=== PATIENT | female | born 1935 | race Hispanic/Latino ===

== ENCOUNTER 2018-04-05 11:03 | Emergency (ER) | payer MEDICARE, OTHER ==
[2018-04-05 11:47] LABS: #Eosinphils 0.2 thou/uL (0.0-0.7); #Lymphocytes 1.4 thou/uL (1.20-3.40); #Monocytes 0.3 thou/uL (0.11-0.59); #Neutrophils 3.2 thou/uL (1.40-6.50); %Basophils 0.5 % (0.0-1.0); %Eosinophils 4.6 % (0.0-10.0); %Lymphocytes 27.8 % (21.0-51.0); %Monocytes 5.3 % (0.0-10.0); %Neutrophils 61.7 % (42.0-75.0); Hemoglobin 14.2 g/dL (12.0-16.0); Mean Corpuscular HGB CONC 34.7 g/dL (32.0-36.0); Mean Corpuscular Hemoglobin 30.1 pg (27.0-31.0); Mean Corpuscular Volume 86.8 fl (81.0-99.0); Mean Platelet Volume 7.6 fL (7.4-10.4); Platelet Count 173 thou/uL (130-400); RBC Distribution Width 12.5 % (11.5-14.5); Red Blood Cell (RBC) Count 4.71 mill/uL (4.20-5.40); White Blood Cell (WBC) Count 5.2 thou/uL (4.8-10.8)
[2018-04-05 12:08] LABS: ALT (SGPT) 13 U/L (8-55); AST (SGOT) 14 U/L (5-34); Alkaline Phosphatase 106 U/L (40-150); Anion Gap 9 mmol/L (10-20); BUN (Urea Nitrogen) 14 mg/dL (9.8-20.1); Bilirubin, Total 0.8 mg/dL (0.2-1.2); Calc. Creatinine Clearance 0 mL/min (70-130); Carbon Dioxide 27 mmol/L (23-31); Chloride 105 mmol/L (98-107); Estimated GFR-MDRD 69; Globulin 3.2 g/dL (2.4-3.5); Glucose 152 mg/dL (83-110); Potassium 3.6 mmol/L (3.5-5.1); Protein, Total 7.2 g/dL (6.0-8.3); Sodium 137 mmol/L (136-145)
--- NOTE | 2018-04-05 12:15 | CT ---
CT HEAD NONCONTRAST DATE: 04/05/18 HISTORY: Fall. Head injury. FINDINGS: There is no evidence of acute intracranial hemorrhage or infarct. The ventricles appear normal in siz e, shape, and position. Diffuse cortical atrophy and chronic ischemic small vessel disease are appare nt. There is no mass effect or shift of midline structures. Visualized paranasal sinuses remain well aerated. IMPRESSION: No acute intracranial abnormalities are demonstrated. POS: [facility]
--- NOTE | 2018-04-05 12:16 | RAD ---
RIGHT SHOULDER 3 VIEWS: Date: 04/05/18 HISTORY: Fall, with injury to shoulder. FINDINGS: There is an anterior shoulder dislocation. Small osseous fragment seen adjacent to the humeral head, presumably fracture fragment from the humeral head. Evidence of old, healed right rib fracture. IMPRESSION: Shoulder dislocation with apparent fracture fragment. POS: [facility]
[2018-04-05] MEDS ORDERED: PROPOFOL 20 ML ONE (12:19)
--- NOTE | 2018-04-05 13:56 | RAD ---
RIGHT SHOULDER 2 VIEWS: Date: 04/05/18 HISTORY: Post shoulder dislocation reduction exam. Portable views obtained. FINDINGS/IMPRESSION: Anterior shoulder dislocation has been reduced. Humeral head appears to have a normal position of the glenoid. Rounded calcific density along the lateral humeral head is again noted, probably representi ng chronic extraosseous calcification. No definite fracture identified. AC joint is normally aligned. POS: [facility]
== END 2018-04-05 17:08 ==
LOC: ERS 11:03
DX: S43.004A Unspecified dislocation of right shoulder joint, initial encounter (principal); S10.91XA Abrasion of unspecified part of neck, initial encounter; M19.90 Unspecified osteoarthritis, unspecified site; I10 Essential (primary) hypertension; Z79.82 Long term (current) use of aspirin; Z79.84 Long term (current) use of oral hypoglycemic drugs; Z79.899 Other long term (current) drug therapy; W01.198A Fall on same level from slipping, tripping and stumbling with subsequent striking against other object, initial encounter; Y93.01 Activity, walking, marching and hiking
CPT/HCPCS: 23650; 36415; 70450; 80053; 83880; 85025; 99152; J2704

== ENCOUNTER 2019-04-21 07:16 | Observation (INO) | payer MEDICARE, OTHER ==
[2019-04-21 08:09] LABS: #Eosinphils 0.3 thou/uL (0.0-0.7); #Lymphocytes 1.3 thou/uL (1.20-3.40); #Monocytes 0.4 thou/uL (0.11-0.59); #Neutrophils 2.7 thou/uL (1.40-6.50); %Basophils 0.2 % (0.0-1.0); %Eosinophils 6.1 % (0.0-10.0); %Monocytes 7.6 % (0.0-10.0); %Neutrophils 58.1 % (42.0-75.0); Hemoglobin 14.4 g/dL (12.0-16.0); Mean Corpuscular HGB CONC 34.3 g/dL (32.0-36.0); Mean Corpuscular Hemoglobin 29.3 pg (27.0-31.0); Mean Corpuscular Volume 85.4 fL (78.0-98.0); Mean Platelet Volume 8.6 fL (7.4-10.4); Platelet Count 161 thou/uL (130-400); RBC Distribution Width 13.1 % (11.5-14.5); Red Blood Cell (RBC) Count 4.93 mill/uL (4.20-5.40); White Blood Cell (WBC) Count 4.7 thou/uL (4.8-10.8)
--- NOTE | 2019-04-21 08:15 | RAD ---
Chest one view HISTORY: Dizziness. COMPARISON: 10/20/2014. FINDINGS: Cardiac silhouette is magnified by projection. Pulmonary vasculature upper limits of normal . Mediastinum is midline with aortic calcification. No confluent airspace consolidation or evidence of pneumothorax. night monitor leads overlie the chest. IMPRESSION: Atherosclerosis. No active cardiopulmonary abnormalities are otherwise demonstrated.
[2019-04-21 08:32] LABS: ALT (SGPT) 16 U/L (8-55); AST (SGOT) 23 U/L (5-34); Albumin 3.9 g/dL (3.4-4.8); Alkaline Phosphatase 102 U/L (40-150); Anion Gap 8 mmol/L (10-20); BUN (Urea Nitrogen) 17 mg/dL (9.8-20.1); Bilirubin, Total 0.9 mg/dL (0.2-1.2); Calc. Creatinine Clearance 0 mL/min (70-130); Calcium 10.1 mg/dL (7.8-10.44); Carbon Dioxide 30 mmol/L (23-31); Chloride 104 mmol/L (98-107); Estimated GFR-MDRD 72; Globulin 2.8 g/dL (2.4-3.5); Glucose 91 mg/dL (83-110); Potassium 4.1 mmol/L (3.5-5.1); Protein, Total 6.7 g/dL (6.0-8.3); Sodium 138 mmol/L (136-145)
--- NOTE | 2019-04-21 08:40 | CT ---
CT BRAIN WITHOUT CONTRAST: HISTORY:Headache, dizziness COMPARISON:04/05/2018 FINDINGS: There are foci of decreased attenuation in the periventricular white matter, consistent with chronic small vessel ischemic disease. No evidence of acute infarct, hemorrhage, midline shift or abnormal extra-axial fluid collections is seen. The ventricular size is appropriate and the basilar cisterns are patent. The bony calvarium is intact. The visualized paranasal sinuses and mastoid air cells are well aerated. IMPRESSION: No CT evidence of acute intracranial process.
[2019-04-21] MEDS ORDERED: Aspirin Chewable 81 MG TAB ONE (09:25)
[2019-04-21] MEDS ORDERED: Meclizine HCl 25 MG TAB ONE (09:25)
[2019-04-21 11:48] LABS: Troponin I Less than 0.010 ng/mL (< 0.028)
[2019-04-21 12:22] VITALS: BMI 28.9
[2019-04-21] MEDS ORDERED: HumaLOG 300 UNITS/3 ML VIAL SC PRN (13:18)
[2019-04-21] MEDS ORDERED: Dextrose 50% Abboject 50 ML SYRINGE SLOW IVP PRN (13:18)
[2019-04-21] MEDS ORDERED: Dextrose 5% in Water 1,000 ML IV PRN (13:18)
--- NOTE | 2019-04-21 14:15 | HP ---
CHIEF COMPLAINT: Vertigo. HISTORY OF PRESENT ILLNESS: This patient is an 83-year-old female, who has degenerative joint disease to the point that she is essentially wheelchair bound. The patient reports that she was in her usual state of relatively good health until this morning, she awakened feeling okay, but when she moved her head from [id number], she started feeling very off balance. She denies having true vertigo per se, but felt very much off balance and had some associated nausea with that. She was ultimately able to get herself up into the wheelchair and get to the bathroom, but she has a finished goods stock clerk, who lives with her and she asked her to take her to the emergency room because she was feeling so poorly. She reports that it has waxed and waned since started this morning. She also reports that it is definitely positional and very much worse when she is trying to lie flat. She denies any numbness, weakness, tingling, or changes in her vision. The patient does report that she has been dealing with a lot of visual floaters that have become very problematic for her and she has seen her content manager and had a thorough evaluation with no findings. REVIEW OF SYSTEMS: Again, the patient denies any chest pains or shortness of breath. She does have some osteoarthritis related pains, but no headaches. All other systems reviewed, all pertinent positives noted in history of present illness. PAST MEDICAL HISTORY: Notable for diabetes, degenerative joint disease, ultimately resulting in a patient being wheelchair bound, hyperlipidemia, hypothyroidism, and hypertension. The patient reports her blood pressure is extremely variable and frequently goes up when she is in a healthcare setting. PAST SURGICAL HISTORY: Thyroidectomy, appendectomy, and hysterectomy. FAMILY HISTORY: Father had a cerebral aneurysm. Mother of senescence at 97. She had a brother, who had esophageal cancer and another with congestive heart failure. SOCIAL HISTORY: Nonsmoker, nondrinker, nondrug user. She is for a couple of years now. She is full code and her daughter who is present with her would be her surrogate decision maker. ALLERGIES: CODEINE. CURRENT MEDICATIONS: 1. Metoprolol 100 mg daily. 2. Meloxicam 15 mg daily. 3. Metformin ER 500 mg daily. 4. Levothyroxine 50 mcg daily. 5. Lozol 2.5 daily. 6. Atorvastatin 40 mg nightly. PHYSICAL EXAMINATION: VITAL SIGNS: Temperature 97.5, pulse 54, respirations are 18, O2 saturation 95% on room air, and BP 169/60. GENERAL APPEARANCE: Age-appropriate female, in no distress. Awake, alert, oriented, pleasant, and cooperative. HEENT: PERRL. No OP lesions. NECK: Supple and symmetric. There are no bruits noted. HEART: Regular rate and rhythm without murmurs, gallops, or rubs. LUNGS: Clear to auscultation bilaterally. ABDOMEN: Soft, nontender, and nondistended. Positive bowel sounds. No masses. No organomegaly. EXTREMITIES: Trace edema of the lower extremities, which is nonpitting. NEUROLOGIC: The patient's cranial nerves are fully intact. She has no nystagmus. She has normal strength and sensation throughout otherwise with no focal deficits noted. LABORATORY DATA: White count 4.7, hemoglobin 14.4, and platelets are 161. Chemistries normal. Troponin less than 0.01 x2. Chest x-ray is clear. Head CT is negative for any acute intracranial process. IMPRESSION AND PLAN: 1. Acute onset of vertigo. The patient's symptoms are atypical for a true vertigo and that she does not feel like the room is spinning. Other than that, this sounds somewhat like a positional vertigo with labyrinthitis. The patient will be treated as true TIA versus stroke with carotid Dopplers, echocardiogram, and MRI of the brain and I will treat symptomatically with p.r.n. meclizine. She has received an aspirin in the emergency department and will continue with daily aspirin for now. 2. Diabetes mellitus, typically well controlled on current medications. We will order Accu-Cheks and diabetic diet. 3. Hypertension. The patient's blood pressure was substantially high when she initially presented into the emergency department with a blood pressure of 214/88. She indicated that she tends to have some white coat hypertension and her blood pressure is better now. We will continue to monitor before doing anything more aggressive, especially in light of the potential of an underlying CVA. 4. Hypothyroidism. Continue home medications. 5. Hyperlipidemia. Continue statin. Job ID: [id number]
[2019-04-21 14:42] LABS: Troponin I Less than 0.010 ng/mL (< 0.028)
--- NOTE | 2019-04-21 15:18 | ULT ---
BILATERAL CAROTID DUPLEX ULTRASOUND: HISTORY: TIA/CVA with vertigo TECHNIQUE: Grayscale, color-flow and spectral Doppler ultrasound imaging of the extracranial carotid artery syst ems was performed bilaterally. FINDINGS: There are scattered calcified atherosclerotic plaque seen within the right carotid bulb and proximal right internal carotid artery with atherosclerotic plaque in the region of the left carotid bulb. There is no hemodynamically significant stenosis in the bilateral internal carotid arteries according to the peak systolic velocities and the ICA/CCA ratios. The peak systolic velocity in the right ICA measures 55.7 cm/s. The peak systolic velocity in the left ICA measures 57.7 cm/s. The right IC A/CCA ratio is 1.08 and the left ICA/CCA ratio is 0.88. Vertebral arteries: Antegrade flow is demonstrated in the vertebral arteries bilaterally. IMPRESSION: No hemodynamically significant stenosis involving the bilateral internal carotid arteries.
[2019-04-21] MEDS: metFORMIN 500 MG TAB PO SCH (16:24)
[2019-04-21] MEDS ORDERED: Atorvastatin Calcium 40 MG TAB PO SCH (21:00)
[2019-04-22 05:36] LABS: Cardiac Risk 3.7 (Less than 4.5)
[2019-04-22] MEDS ORDERED: Levothyroxine Sodium 50 MCG TAB PO SCH (06:00)
[2019-04-22] MEDS: metFORMIN 500 MG TAB PO SCH ×2 (07:58→19:40)
--- NOTE | 2019-04-22 08:52 | MRI ---
EXAM: Brain MRI Without contrast: HISTORY: TIA, CVA, vertigo, headache and dizziness COMPARISON: None FINDINGS: Multiplanar multisequence MRI examination of the brain is performed. Extensive motion artifact consid erably lowers the sensitivity of this study. Minimal generalized ventriculomegaly. Bilateral atrophy and chronic white matter ischemic changes. No mass or midline shift. No evidence for intra or extra-axial hemorrhage. No evidence for abnormal restricted diffusion. No evidence for acute infarct. Normal-appearing flow voids are noted. The extracranial soft tissues and calvarial marrow signal appear within normal limits. Visualized sinuses and mastoids are unremarkable. IMPRESSION: No significant acute intracranial process. Atrophy and chronic white matter ischemic change. No mass or bleed. No acute infarct.
[2019-04-22] MEDS ORDERED: Aspirin 81 mg Enteric Coated Tablet PO SCH (09:00)
[2019-04-22] MEDS ORDERED: Indapamide 1.25 MG TAB PO SCH (09:00)
[2019-04-22] MEDS ORDERED: Meloxicam 15 MG TAB PO SCH (09:00)
[2019-04-22] MEDS ORDERED: Metoprolol Tartrate 100 MG TAB PO SCH (09:00)
[2019-04-22 16:05] VITALS: BP 172/72; TEMP 97.7
--- NOTE | 2019-04-23 03:54 | DIS ---
DATE OF ADMISSION: 04/21/2019 DATE OF DISCHARGE: 04/22/2019 CHIEF COMPLAINT: Dizziness. DISCHARGE DIAGNOSES: 1. Dizziness, consistent with benign paroxysmal positional vertigo, cerebrovascular accident workup negative, symptoms resolved with meclizine. 2. Severe osteoarthritis, wheelchair bound/nonambulatory. 3. Hypertension. 4. Hyperlipidemia. 5. Type 2 diabetes mellitus. 6. Abnormal EKG, new T-wave inversions noted in the anterior leads, asymptomatic. BRIEF HOSPITAL COURSE: The patient is a very pleasant 83-year-old female with past medical history significant for hypertension, hyperlipidemia, and type 2 diabetes mellitus, who presented with complaints of dizziness. She was in her usual state of health until the day of her admission, when she awoke, feeling okay, but then when she moved her head from [id number], she began feeling very off-balance. She felt dizzy with associated nausea. The symptoms were exacerbated with lying flat. She was admitted to our facility for further workup and treatment. CT of the brain was negative for any acute intracranial abnormality. Her MRI was negative for acute stroke. Her symptoms did resolve overnight with scheduled meclizine. An incidental finding was new T-wave inversions noted on anterior leads of her EKG when compared to previous EKGs in 2010 and 2013. The patient denies any chest pain or shortness of breath. She has no palpitations or any other cardiac symptoms at this time. CONDITION ON DISCHARGE: Stable. DISCHARGE DISPOSITION: Home. DISCHARGE MEDICATIONS: 1. Aspirin 81 mg daily. 2. Metoprolol 100 mg daily. 3. Metformin 500 mg tablet daily. 4. Meloxicam 50 mg tablet daily. 5. Levothyroxine 50 mcg tablet daily. 6. Atorvastatin 40 mg tablet daily. 7. Lozol 2.5 mg p.o. daily. New medication will be meclizine p.r.n. DISCHARGE INSTRUCTIONS: The patient is to continue her aspirin and statin. Findings of all of her testing, including her echocardiogram which showed normal left ventricular systolic function and wall motion, were explained to the patient. I have advised her to follow up with her primary care physician, Dr. Mcneal for consideration of stress test or cardiac referral as an outpatient. This was discussed with the patient and her family, which they understand and agree. She will follow up with her PCP and return to the hospital with any returning of symptoms. The care of this patient has been discussed in detail with Dr. Singh who agrees with discharge as outlined above. Job ID: [id number]
== END 2019-04-22 19:35 | disposition home or self-care (01) ==
LOC: ERS 07:16 → 2SE 11:15 → 2NO 13:42 → 2SE 13:46
PROVIDERS: ADMIT Internal Medicine; ATTEND Internal Medicine
DX: R42 Dizziness and giddiness (principal); M19.90 Unspecified osteoarthritis, unspecified site; E11.9 Type 2 diabetes mellitus without complications; E78.5 Hyperlipidemia, unspecified; E89.0 Postprocedural hypothyroidism; I10 Essential (primary) hypertension; Z88.5 Allergy status to narcotic agent; Z79.84 Long term (current) use of oral hypoglycemic drugs; Z79.899 Other long term (current) drug therapy
CPT/HCPCS: 70450; 70551; 71045; 80053; 80061; 82962 ×2; 84484 ×2; 85025; 93005; 93306; 93880; 99285; G0378 ×2; 36415; 36416; J8499

== ENCOUNTER 2019-10-15 09:26 | Inpatient (IN) | payer MEDICARE, OTHER ==
[2019-10-15] MEDS ORDERED: Lidocaine Viscous Sol 2% 15 ml UD Cup ONE (09:59)
[2019-10-15] MEDS ORDERED: Ondansetron PF 4 MG/2 ML Vial ONE (10:00)
[2019-10-15] MEDS ORDERED: Mag-Al 1200 mg/1200 mg/30 ML UDCUP ONE (10:00)
[2019-10-15 10:26] LABS: #Monocytes 0.7 thou/uL (0.11-0.59); #Neutrophils 8.8 thou/uL (1.40-6.50); %Basophils 0.2 % (0.0-1.0); %Eosinophils 0.2 % (0.0-10.0); %Lymphocytes 9.1 % (21.0-51.0); %Monocytes 6.7 % (0.0-10.0); %Neutrophils 83.7 % (42.0-75.0); Hemoglobin 14.2 g/dL (12.0-16.0); Mean Corpuscular HGB CONC 33.3 g/dL (32.0-36.0); Mean Corpuscular Hemoglobin 28.7 pg (27.0-31.0); Mean Corpuscular Volume 86.2 fL (78.0-98.0); Mean Platelet Volume 8.3 fL (7.4-10.4); Platelet Count 150 thou/uL (130-400); RBC Distribution Width 12.7 % (11.5-14.5); Red Blood Cell (RBC) Count 4.95 mill/uL (4.20-5.40); White Blood Cell (WBC) Count 10.5 thou/uL (4.8-10.8)
[2019-10-15 10:52] LABS: ALT (SGPT) 15 U/L (8-55); AST (SGOT) 17 U/L (5-34); Albumin 3.8 g/dL (3.4-4.8); Alkaline Phosphatase 86 U/L (40-110); Anion Gap 12 mmol/L (10-20); BUN (Urea Nitrogen) 17 mg/dL (9.8-20.1); Bilirubin, Total 1.6 mg/dL (0.2-1.2); Calc. Creatinine Clearance 0 mL/min (70-130); Calcium 10.1 mg/dL (7.8-10.44); Carbon Dioxide 25 mmol/L (23-31); Chloride 97 mmol/L (98-107); Estimated GFR-MDRD 72; Globulin 3.4 g/dL (2.4-3.5); Glucose 132 mg/dL (83-110); Lipase 21 U/L (8-78); Protein, Total 7.2 g/dL (6.0-8.3); Sodium 130 mmol/L (136-145)
--- NOTE | 2019-10-15 10:58 | ULT ---
Venous duplex sonogram bilateral lower extremity HISTORY: Bilateral leg pain and edema. FINDINGS: Each common femoral vein and greater saphenous junction were evaluated along with each femo ral, deep femoral, popliteal, and posterior tibial vein. There is good color and spectral Doppler flow, compression, and augmentation. IMPRESSION: Normal exam.
--- NOTE | 2019-10-15 11:19 | CT ---
CT OF THE ABDOMEN AND PELVIS WITH IV CONTRAST INDICATION: Nausea and abdominal pain COMPARISON: October 21, 2014 FINDINGS: ABDOMEN: Lung bases: Clear Liver: No focal lesion. No biliary ductal dilatation demonstrated. Gallbladder: There is marked gallbladder wall thickening with pericholecystic inflammatory stranding Pancreas: Normal. Adrenal glands: Normal. Spleen: Normal. Kidneys and ureters: Normal. No hydronephrosis. Vasculature: There are severe vascular calcifications seen involving the visualized vasculature. Lymph nodes:No lymphadenopathy. Free fluid in abdomen:No free fluid is evident. PELVIS: Small and large bowel: Normal Appendix:Not visualized Bladder: Normal. Rectal and perirectal soft tissues:Normal. Reproductive structures: Surgically absent Free fluid in pelvis: No free fluid is evident. Lymphadenopathy pelvis: No lymphadenopathy is evident. Osseous structures: No acute osseous abnormality. No destructive osteolytic or osteoblastic lesion i s identified. There is scattered degenerative and osteoarthritic changes. There is moderate thoracolumbar scoliosis there is a remote superior endplate compression abnormality of L4. Soft tissues:Normal. IMPRESSION: 1. Acute cholecystitis. No intrahepatic or extra hepatic biliary ductal dilatation demonstrated.
--- NOTE | 2019-10-15 11:23 | RAD ---
SINGLE VIEW CHEST: Date: 10/15/19 COMPARISON: 04/21/19. HISTORY: Nausea and epigastric abdominal pain. FINDINGS: Single view of the chest shows a normal sized cardiomediastinal silhouette. There is no evidence of c onsolidation, mass, or pleural effusion. The bones are unremarkable. IMPRESSION: No evidence of acute cardiopulmonary disease. POS: [facility]
[2019-10-15] MEDS ORDERED: Piperacillin/Tazobactam 4.5 GM VIAL ONE (11:34)
[2019-10-15] MEDS ORDERED: Sodium Chloride 0.9% 100 ML ONE (11:36)
[2019-10-15 11:51] LABS: Bilirubin Negative (Negative); Blood, Urine Negative (Negative); Clarity Clear (Clear); Glucose, Urine (Dipstick) Normal (Negative); Leukocyte 500 Leu/uL (Negative); Nitrite 1+ (Negative); Protein, Urine (Dipstick) Negative (Neg-Trace); RBC/HPF 0-3 HPF (0-3); Squamous Epithelial 0-3 HPF (0-3); Urobilinogen Normal mg/dL (Less than 2); WBC/HPF Greater than 50 HPF (0-3)
--- NOTE | 2019-10-15 11:57 | ULT ---
Gallbladder ultrasound: Multiple grayscale images of right upper quadrant obtained according to protocol. INDICATION: Pain FINDINGS: Liver: Normal Gallbladder: Cholelithiasis. Gallbladder wall: Borderline thickening, 3 mm. Trace pericholecystic edema. Stubbs's Sign: Negative Common bile duct is normal. Ascites: None IMPRESSION: Cholelithiasis. Borderline size gallbladder wall with trace pericholecystic fluid. Correlate clinical ly to exclude evidence of cholecystitis.
[2019-10-15 12:03] LABS: Bacteria/HPF 4+ HPF (None Seen)
--- NOTE | 2019-10-15 16:03 | HP ---
HISTORY OF PRESENT ILLNESS: Kelli Lea is an 84-year-old female, comes to the emergency room with right upper quadrant pain, epigastric pain, back radiation, nausea, ongoing for several days. She has had past events of epigastric mild discomfort and nausea and pressure type symptoms in epigastric. She, in the emergency room, underwent a CAT scan of the abdomen and pelvis and ultrasound of the gallbladder, revealing normal bile duct caliber and findings of acute cholecystitis and cholelithiasis. Her white count was 10 and hemoglobin 14. Bilirubin 1.6, AST and ALT 17 and 15, alkaline phosphatase normal. Lipase normal. Sodium 130, potassium 4.0, BUN 17, and creatinine 0.76. She was noted to have some nonspecific ST changes and troponins are negative. The patient has never had a cardiac history. On 04/22/2019 at [facility], had an echocardiogram that was normal, 50% to 55% ejection fraction, moderate LVH, moderate mitral regurgitation, mild tricuspid regurgitation, normal pulmonary artery pressure. The patient has never had a past cardiac workup or seeing a dobby looms pegger. ALLERGIES: NONE. SHE REPORTS GI SIDE EFFECTS FROM CODEINE. SOCIAL HISTORY: Tobacco and alcohol none. HOME MEDICATIONS: She takes, 1. Metformin 500 a day. 2. Metoprolol 100 mg a day. 3. Mobic 15 mg a day. 4. Levothyroxine 50 mcg a day. 5. Lozol 2.5 mg a day. 6. Atorvastatin 40 mg a day. 7. Aspirin 81 mg a day. PAST SURGICAL HISTORY: She has had a hysterectomy, salpingo-oophorectomy, appendectomy, and thyroidectomy. PAST MEDICAL HISTORY: Diabetes mellitus, hypertension. The patient has arthritis. She is mobile about her home in a wheelchair and walker. She is able to transfer on her own. She is independent. She has recently stopped driving. Mobility is limited by her degenerative joint disease. She is followed by Dr. Mcneal. FAMILY HISTORY: Brother had esophageal cancer. Another sibling had congestive heart failure. Mother , dementia. PHYSICAL EXAMINATION: VITAL SIGNS: respiratory rate 18, temperature 97.9 degrees, blood pressure 140/67, and 95. HEAD, EYES, NOSE, AND THROAT: Unremarkable. LUNGS: Clear to auscultation. CARDIAC: Regular rate and rhythm without murmur or gallop. ABDOMEN: Soft. Tenderness in right upper quadrant positive Stubbs sign. EXTREMITIES: Unremarkable. ASSESSMENT AND PLAN: Cholecystitis, cholelithiasis. Recommend laparoscopic video cholecystectomy. Risks of infection, bleeding, visceral and biliary injury discussed. She consents. We will review her EKG as her troponins are normal and may echocardiogram essentially normal. I think she is safe to proceed. We will review her EKG with Cardiology and hopefully, we can accomplish this today. Job ID: [id number]
[2019-10-15] MEDS ORDERED: Iopamidol-370 76% 500 ML 1 ML ONE (16:15)
[2019-10-15] MEDS ORDERED: Dextrose 50% Abboject 50 ML SYRINGE SLOW IVP PRN (16:22)
[2019-10-15] MEDS ORDERED: Dextrose 5% in Water 1,000 ML IV PRN (16:22)
[2019-10-15] MEDS ORDERED: Ondansetron PF 4 MG/2 ML Vial IVP PRN (16:22)
[2019-10-15] MEDS ORDERED: Morphine 2 MG/ML SYRINGE SLOW IVP PRN (16:22)
[2019-10-15] MEDS ORDERED: HumaLOG 300 UNITS/3 ML VIAL SC PRN (16:22)
[2019-10-15] MEDS ORDERED: Ondansetron ODT 4 MG TAB PO PRN (16:22)
[2019-10-15] MEDS ORDERED: Acetaminophen 500 MG TAB PO PRN (16:31)
[2019-10-15] MEDS ORDERED: Acetaminophen 1,000 MG in Premix Bag 1 BAG IVPB PRN (16:31)
[2019-10-15] MEDS ORDERED: Ketorolac Tromethamine 30 MG/ML VIAL IVP SCH (16:45)
[2019-10-15] MEDS ORDERED: Acetaminophen 1,000 MG in Premix Bag 1 BAG IVPB SCH (16:45)
[2019-10-15] MEDS ORDERED: Ketorolac Tromethamine 30 MG/ML VIAL IVP PRN (21:00)
[2019-10-15] MEDS: Sodium Chloride 0.9% 1,000 ML IV SCH (22:05)
[2019-10-15] MEDS: Enoxaparin Sodium 40 MG/0.4 ML SYRINGE SC SCH (22:09)
[2019-10-15 23:17] VITALS: BMI 27.1
[2019-10-16 05:55] LABS: Hemoglobin A1c 5.5 % (4.0-6.0)
[2019-10-16 06:09] LABS: ALT (SGPT) 13 U/L (8-55); AST (SGOT) 12 U/L (5-34); Albumin 3.1 g/dL (3.4-4.8); Alkaline Phosphatase 68 U/L (40-110); Anion Gap 7 mmol/L (10-20); BUN (Urea Nitrogen) 15 mg/dL (9.8-20.1); Bilirubin, Total 1.2 mg/dL (0.2-1.2); Calc. Creatinine Clearance 59 mL/min (70-130); Calcium 9.3 mg/dL (7.8-10.44); Carbon Dioxide 28 mmol/L (23-31); Chloride 102 mmol/L (98-107); Estimated GFR-MDRD 71; Glucose 112 mg/dL (83-110); Potassium 3.4 mmol/L (3.5-5.1); Protein, Total 6.1 g/dL (6.0-8.3); Sodium 134 mmol/L (136-145)
[2019-10-16] MEDS: Sodium Chloride 0.9% 1,000 ML IV SCH ×2 (06:46→20:45)
[2019-10-16] MEDS: Levothyroxine Sodium 50 MCG TAB PO SCH (06:47)
[2019-10-16] MEDS: Metoprolol Tartrate 100 MG TAB PO SCH (08:21)
[2019-10-16] MEDS ORDERED: Glycopyrrolate 0.2 MG/ML 5 ML SYRINGE ONE (10:08)
[2019-10-16] MEDS ORDERED: Rocuronium Bromide 10 MG/ML (10ML VIAL) ONE (10:08)
[2019-10-16] MEDS ORDERED: PROPOFOL 200 MG/20 ML VIAL ONE (10:08)
[2019-10-16] MEDS ORDERED: Lidocaine 1% PF 5 ML VIAL ONE (10:08)
[2019-10-16] MEDS ORDERED: Ondansetron PF 4 MG/2 ML Vial ONE (10:08)
[2019-10-16] MEDS ORDERED: PHENYLEPHRINE-NS 100 MCG/ML 10 ML SYRINGE ONE (10:08)
[2019-10-16] MEDS ORDERED: ePHEDrine/0.9% NaCl/PF SYRINGE 50 mg/10 ml ONE (10:08)
[2019-10-16] MEDS ORDERED: Ketorolac Tromethamine 30 MG/ML VIAL ONE (13:27)
[2019-10-16] MEDS ORDERED: Fentanyl 100 MCG/2 ML VIAL ONE (14:39)
[2019-10-16] MEDS ORDERED: Bupivacaine HCl 0.5%/Epinephrine 1:200,000/PF 30 ml Vial ONE (14:49)
[2019-10-16] MEDS ORDERED: Promethazine HCl 25 MG/ML VIAL SLOW IVP PRN (15:54)
[2019-10-16] MEDS ORDERED: Ondansetron HCl/PF 4 MG/2 ML Vial IVP PRN (15:54)
[2019-10-16] MEDS ORDERED: Promethazine HCl 25 MG/ML VIAL IM PRN (15:54)
[2019-10-16] MEDS ORDERED: traMADol HCl 50 MG TAB PO PRN (16:09)
[2019-10-16] MEDS ORDERED: Acetaminophen 500 MG TAB PO PRN (16:09)
[2019-10-16] MEDS ORDERED: Ibuprofen 600 MG TAB PO PRN (16:09)
--- NOTE | 2019-10-16 16:49 | OP ---
DATE OF PROCEDURE: 10/16/2019 PREOPERATIVE DIAGNOSES: Acute cholecystitis and cholelithiasis. POSTOPERATIVE DIAGNOSES: Acute on chronic cholecystitis, cholelithiasis, hydrops of the gallbladder, and large stone blocking the outlet. ANESTHESIA: General, local 0.5% Marcaine with epinephrine. DESCRIPTION OF PROCEDURE: The patient was taken to the operating room. Under general anesthesia, abdomen was prepared with ChloraPrep and draped in routine fashion, local anesthetic 0.5% Marcaine with epinephrine was infiltrated in the skin and subcutaneous tissue about all port sites. An infraumbilical incision made, pneumoperitoneum established with a Veress needle to 15 mmHg and a 5 mm port applied. Videolaparoscope inserted. Remaining ports placed under laparoscopic visualization. A right subxiphoid incision was made and 11 port placed, right subcostal incision was made at midclavicular entrance line, the 5 port was placed. Fundus of the gallbladder was difficult to grasp due to its thickened inflamed nature and distended gallbladder, but nonetheless it was grasped and reflected cephalad and then grasped with this laterally after omental adhesions taken down from its inflammatory attachments. Critical view obtained. Dissecting the cystic artery and duct free, doubly clipped and the cystic artery and duct divided and the gallbladder dissected free from inflammatory attachments to the gallbladder from the liver bed using cautery for hemostasis. Gallbladder and contents, large stone removed. Good hemostasis ensured with cautery. Irrigant and pneumoperitoneum were evacuated. Right subxiphoid fascia was approximated with 0 Vicryl suture. All skin incisions were approximated with interrupted subdermal 4-0 Monocryl and [place] glue applied. Job ID: [id number]
[2019-10-16] MEDS: Aspirin 81 mg Enteric Coated Tablet PO SCH (17:48)
[2019-10-16] MEDS: Enoxaparin Sodium 40 MG/0.4 ML SYRINGE SC SCH (20:44)
[2019-10-17] MEDS: Sodium Chloride 0.9% 1,000 ML IV SCH ×2 (00:27→08:38)
[2019-10-17 04:09] LABS: #Lymphocytes 0.5 thou/uL (1.20-3.40); #Monocytes 0.3 thou/uL (0.11-0.59); #Neutrophils 4.8 thou/uL (1.40-6.50); %Basophils 0.2 % (0.0-1.0); %Eosinophils 0.1 % (0.0-10.0); %Lymphocytes 8.8 % (21.0-51.0); %Monocytes 5.1 % (0.0-10.0); %Neutrophils 85.8 % (42.0-75.0); Hemoglobin 11.4 g/dL (12.0-16.0); Mean Corpuscular HGB CONC 34.1 g/dL (32.0-36.0); Mean Corpuscular Hemoglobin 29.2 pg (27.0-31.0); Mean Corpuscular Volume 85.7 fL (78.0-98.0); Mean Platelet Volume 8.4 fL (7.4-10.4); Platelet Count 119 thou/uL (130-400); RBC Distribution Width 12.5 % (11.5-14.5); Red Blood Cell (RBC) Count 3.92 mill/uL (4.20-5.40); White Blood Cell (WBC) Count 5.6 thou/uL (4.8-10.8)
[2019-10-17 04:31] LABS: ALT (SGPT) 33 U/L (8-55); AST (SGOT) 41 U/L (5-34); Albumin 2.9 g/dL (3.4-4.8); Alkaline Phosphatase 66 U/L (40-110); Anion Gap 9 mmol/L (10-20); BUN (Urea Nitrogen) 13 mg/dL (9.8-20.1); Bilirubin, Total 0.8 mg/dL (0.2-1.2); Calc. Creatinine Clearance 70 mL/min (70-130); Calcium 8.8 mg/dL (7.8-10.44); Carbon Dioxide 26 mmol/L (23-31); Chloride 105 mmol/L (98-107); Estimated GFR-MDRD 86; Globulin 2.8 g/dL (2.4-3.5); Glucose 84 mg/dL (83-110); Protein, Total 5.7 g/dL (6.0-8.3); Sodium 137 mmol/L (136-145)
[2019-10-17 04:34] LABS: Potassium 2.9 mmol/L (3.5-5.1)
[2019-10-17] MEDS ORDERED: Potassium Chloride 20 MEQ TAB PO SCH (05:00)
[2019-10-17] MEDS: Levothyroxine Sodium 50 MCG TAB PO SCH (05:10)
[2019-10-17 08:42] VITALS: BP 149/77
[2019-10-17] MEDS: Aspirin 81 mg Enteric Coated Tablet PO SCH (10:00)
[2019-10-17] MEDS: Metoprolol Tartrate 100 MG TAB PO SCH (10:00)
[2019-10-17 13:33] VITALS: TEMP 98.5
--- NOTE | 2019-10-17 16:36 | DIS ---
DATE OF ADMISSION: 10/15/2019 DATE OF DISCHARGE: 10/17/2019 DISCHARGE DIAGNOSES: Severe cholecystitis acute on chronic with cholelithiasis. PROCEDURES THIS HOSPITALIZATION: CT scan of the abdomen and pelvis and ultrasound revealing findings of acute cholecystitis and cholelithiasis. CAT scan of the abdomen and pelvis obtained, unremarkable except for cholecystitis changes. No biliary ductal dilatation. Liver function tests were normal. HISTORY: An 84-year-old female, developing acute abdominal pain. I evaluated in the emergency room with the above findings. She has questionable EKG changes with Dr. Garcia and Dr. Barnes reviewed and there were no changes from baseline. Several months ago, echocardiogram in March was unremarkable. The patient had right upper quadrant epigastric pain, back radiation. The patient was treated with intravenous antibiotics, taken to the operating room for laparoscopic cholecystectomy on 10/16 due to unavailability of OR on 10/15 at 3 p.m. when she arrived. The patient is discharged home with oral antibiotics, Tylenol, and Motrin for pain, and resume her home medications of metformin, Toprol, meloxicam, levothyroxine, Lozol, atorvastatin, and aspirin. Diet and activity as tolerated. She can transfer, but mobility is limited by her DJD. Job ID: [id number]
--- NOTE | 2019-10-18 07:26 | HP ---
ADDENDUM: Ms. Lea was seen earlier. History and physical dictated. I reviewed her May EKG. The patient had some equivocal EKG changes. I have obtained her March EKG. Noted a normal echocardiogram with minimal valvular changes in March. The patient is asymptomatic from a cardiac standpoint. Her troponins are negative. Her symptoms are clearly biliary, and she is not having any chest pain. I have reviewed her May EKG with current EKG. On her March EKG, she had a right bundle-branch block. It was not recorded by the computer. This was read and reviewed with Dr. Josue Barnes. The patient's EKG changes are not acute and are old, and further workup is not warranted. We will admit her to the Surgical Service and plan laparoscopic cholecystectomy tomorrow as the operating room theater is not available at 0430 this afternoon. Job ID: [id number]
== END 2019-10-17 16:44 | disposition home or self-care (01) | DRG 418 ==
LOC: ERS 09:26 → SURG B 18:55
PROVIDERS: ADMIT Specialist; ATTEND Specialist
PROC: 0FT44ZZ Resection of Gallbladder, Percutaneous Endoscopic Approach (ICD-10-PCS; principal; 2019-10-16)
DX: K80.12 Calculus of gallbladder with acute and chronic cholecystitis without obstruction (principal); K82.1 Hydrops of gallbladder; I08.3 Combined rheumatic disorders of mitral, aortic and tricuspid valves; I10 Essential (primary) hypertension; E11.9 Type 2 diabetes mellitus without complications; E03.9 Hypothyroidism, unspecified; Z88.5 Allergy status to narcotic agent; Z79.84 Long term (current) use of oral hypoglycemic drugs; Z79.82 Long term (current) use of aspirin; Z79.890 Hormone replacement therapy; Z79.899 Other long term (current) drug therapy; Z90.710 Acquired absence of both cervix and uterus; Z90.49 Acquired absence of other specified parts of digestive tract
CPT/HCPCS: 36415; 36416; 71045; 74177; 76705; 80053; 81003; 81015; 83036; 83605; 83690; 83880; 84484; 85025; 88304; 93005; 93970; 96361; 96365; 96366; 96367; 96375; J0131; J0670; J1650; J1885; J1956; J2001; J2405; J2543; J2704; J3010; J3490; Q9967

== ENCOUNTER 2020-10-06 08:38 | Inpatient (IN) | payer MEDICARE, OTHER ==
[2020-10-06] MEDS ORDERED: Acetaminophen 500 MG TAB ONE (09:31)
[2020-10-06] MEDS ORDERED: cefTRIAXone\\ROCEPHIN 2 GM VIAL ONE (09:31)
[2020-10-06 09:41] LABS: #Eosinphils 0.3 thou/uL (0.0-0.7); #Lymphocytes 1.2 thou/uL (1.20-3.40); #Monocytes 0.4 thou/uL (0.11-0.59); #Neutrophils 3.1 thou/uL (1.40-6.50); %Basophils 0.9 % (0.0-1.0); %Eosinophils 6.3 % (0.0-10.0); %Lymphocytes 23.6 % (21.0-51.0); %Monocytes 7.8 % (0.0-10.0); %Neutrophils 61.4 % (42.0-75.0); Hemoglobin 14.2 g/dL (12.0-16.0); Mean Corpuscular HGB CONC 34.5 g/dL (32.0-36.0); Mean Corpuscular Hemoglobin 30.1 pg (27.0-31.0); Mean Corpuscular Volume 87.2 fL (78.0-98.0); Mean Platelet Volume 8.7 fL (7.4-10.4); Platelet Count 161 thou/uL (130-400); RBC Distribution Width 12.6 % (11.5-14.5); Red Blood Cell (RBC) Count 4.72 mill/uL (4.20-5.40); White Blood Cell (WBC) Count 5.1 thou/uL (4.8-10.8)
[2020-10-06 09:54] LABS: ALT (SGPT) 17 U/L (8-55); AST (SGOT) 18 U/L (5-34); Alkaline Phosphatase 93 U/L (40-110); Anion Gap 9 mmol/L (10-20); BUN (Urea Nitrogen) 19 mg/dL (9.8-20.1); Bilirubin, Total 0.9 mg/dL (0.2-1.2); Calc. Creatinine Clearance 0 mL/min (70-130); Carbon Dioxide 29 mmol/L (23-31); Chloride 100 mmol/L (98-107); Estimated GFR-MDRD 44; Globulin 3.1 g/dL (2.4-3.5); Glucose 90 mg/dL (83-110); Potassium 4.3 mmol/L (3.5-5.1); Protein, Total 7.1 g/dL (6.0-8.3); Sodium 134 mmol/L (136-145)
[2020-10-06] MEDS ORDERED: Vancomycin HCl 1.25 GM in Sodium Chloride 0.9% 250 ML 250 ML IVPB SCH (10:00)
[2020-10-06] MEDS ORDERED: Acetaminophen 650 MG Suppository PR PRN (11:09)
--- NOTE | 2020-10-06 11:22 | PDOC.HHP ---
Hospitalist HPI - History of Present Illness History of Present Illness: ADMISSION DATE: 10/06/2020 TIME OF ASSESSMENT: 1000 PRIMARY CARE PHYSICIAN: Dr. Kenton Mcneal CHIEF COMPLAINT: Left lower leg swelling and redness HPI: Ms. Lou is a pleasant 85-year-old woman who presents to the emergency department due to worsening swelling and redness in the left lower leg. She states she first noted erythema and swelling extending approximately 4 to 5 cm above her ankle on Friday last . Reports a blister on the lower half of her espinoza which had burst and was draining clear fluid. She made an appointment to see her primary care physician this past Friday and was started on Bactrim. at that time there had been no worsening redness or swelling. She began her antibiotics on Friday morning and today the redness began to extend up her lower leg. It remains below the knee and she denies any significant pain but states that she has a lot of itching. Denies having any fevers chills or sweats. No nausea or vomiting. No headaches or dizziness. Uses a wheelchair to get around at baseline. At times she is able to use a counter to walk in her kitchen. Denies any urinary symptoms. No stool changes. All other review systems are negative. ED COURSE: In the emergency department the patient had laboratory studies done which showed a white count of 5.1, hemoglobin 14.2, hematocrit 41.2, platelets 161, neutrophils 61.4% sodium 134 potassium 4.3 BUN 19 creatinine 1.16 GFR 44 glucose 90 lactic acid 1.1. CRP negative. BNP 199.7. LFTs unremarkable. Left tib-fib x-ray done, report pending. Patient was given 1 L of normal saline and 1 g of Tylenol. She was started on IV antibiotics with vancomycin and Rocephin. PAST MEDICAL HISTORY: 1. Hypertension 2. Hypothyroidism 3. Prediabetes PAST SURGICAL HISTORY: 1. Thyroidectomy 2. Appendectomy 3. Cholecystectomy 4. Hysterectomy SOCIAL HISTORY: Patient lives at home with her family. As mentioned she mainly mobilizes with the help of a wheelchair but is able to stand and walk and short distances at home. He is fully independent. Denies any tobacco use alcohol consumption or drug use. FAMILY HISTORY: Contributory ALLERGIES: Codeine CURRENT MEDICATIONS: 1. Levothyroxine 50 mcg p.o. daily 2. Atorvastatin 40 mg p.o. daily 3. Indapamide 2.5 mg p.o. daily 4. Meloxicam 15 mg p.o. daily 5. Aspirin 81 mg p.o. daily 6. Metoprolol tartrate 100 mg p.o. daily 7. Furosemide 20 mg p.o. daily 8. Bactrim 9. Mupirocin 2% topical 3 times daily - Exam General Appearance: NAD, awake alert General - other findings: VS: temp 97.7, HR 79, BP 175/71, RR 16, O2 sat 97% on room air. Eye: PERRL, anicteric sclera ENT: normocephalic atraumatic, no oropharyngeal lesions, moist mucosa Neck: supple, symmetric, no lymphadenopathy Heart: RRR, no murmur, no gallops, no rubs, normal peripheral pulses Respiratory: CTAB, no wheezes, no rales, no ronchi, normal chest expansion Gastrointestinal: soft, non-tender, non-distended, normal bowel sounds Extremities: 1+ LE edema Extremities - other findings: LLE: erythema/swelling, lower half of lower leg Skin - other findings: LLE: small blisters, one open blister with no active drainage/bleeding Neurological: cranial nerve grossly intact, normal sensation to touch Musculoskeletal: normal tone, normal strength, no muscle wasting Psychiatric: normal affect, normal behavior, A&O x 3 Hospitalist Results - Labs Result Diagrams: 10/06/20 07:26 10/06/20 07:26 Lab results: WBC 5.1 thou/uL (4.8-10.8) 10/06/20 07:26 Hgb 14.2 g/dL (12.0-16.0) 10/06/20 07:26 Hct 41.2 % (36.0-47.0) 10/06/20 07:26 MCV 87.2 fL (78.0-98.0) 10/06/20 07:26 Plt Count 161 thou/uL (130-400) 10/06/20 07:26 Neutrophils % 61.4 % (42.0-75.0) 10/06/20 07:26 ESR Westergren 11 mm/hr (Less than 30) 10/06/20 10:16 Sodium 134 mmol/L (136-145) L 10/06/20 07:26 Potassium 4.3 mmol/L (3.5-5.1) 10/06/20 07:26 Chloride 100 mmol/L (98-107) 10/06/20 07:26 Carbon Dioxide 29 mmol/L (23-31) 10/06/20 07:26 BUN 19 mg/dL (9.8-20.1) 10/06/20 07:26 Creatinine 1.16 mg/dL (0.6-1.1) H 10/06/20 07:26 Glucose 90 mg/dL (83-110) 10/06/20 07:26 Lactic Acid 1.1 mmol/L (0.5-2.2) 10/06/20 10:16 Calcium 10.0 mg/dL (7.8-10.44) 10/06/20 07:26 Total Bilirubin 0.9 mg/dL (0.2-1.2) 10/06/20 07:26 AST 18 U/L (5-34) 10/06/20 07:26 ALT 17 U/L (8-55) 10/06/20 07:26 Alkaline Phosphatase 93 U/L (40-110) 10/06/20 07:26 C-Reactive Protein Less than 0.50 mg/dL (= or < 0.5) 10/06/20 10:16 B-Natriuretic Peptide 199.7 pg/mL (0-100) H 10/06/20 10:16 Serum Total Protein 7.1 g/dL (6.0-8.3) 10/06/20 07:26 Albumin 4.0 g/dL (3.4-4.8) 10/06/20 07:26 Hospitalist H&P A/P - Problem (1) Left leg cellulitis Code(s): L03.116 - CELLULITIS OF LEFT LOWER LIMB Status: Acute Assessment and Plan: Continue IV antibiotics Pharmacy to dose Vanc Given Rocephin in ED Will give Cefepime 2 gm IV BID starting tomorrow AM. Monitor for further worsening of erythema/swelling. Daily BMP to assess renal funcion. Daily CBC. (2) PINKY (acute kidney injury) Code(s): N17.9 - ACUTE KIDNEY FAILURE, UNSPECIFIED Status: Acute Assessment and Plan: Hx of lower extremity Edema, on Lasix at home. Last Echo 03/2019: EF 50-55%, LVH, mod MR, mild TR. Gentle hydration. Monitor renal function (3) Hypertension Code(s): I10 - ESSENTIAL (PRIMARY) HYPERTENSION Status: Chronic Assessment and Plan: Monitor BP Resume home medications once verified. (4) Hypothyroidism Code(s): E03.9 - HYPOTHYROIDISM, UNSPECIFIED Status: Chronic Assessment and Plan: Resume levothyroxine once dose verified. Check TSH. (5) Pre-diabetes Code(s): R73.03 - PREDIABETES Status: Chronic Assessment and Plan: glucose monitoring, ACHS (6) Arthritis Code(s): M19.90 - UNSPECIFIED OSTEOARTHRITIS, UNSPECIFIED SITE Status: Chronic Assessment and Plan: Resume home meds once verified. - Plan Plan: GI prophylaxis with Famotidine. DVT Prophylaxis with Enoxaparin Surrogate decision maker is her daughter Arianne Pino FULL CODE STATUS
--- NOTE | 2020-10-06 11:37 | RAD ---
LEFT TIBIA AND FIBULA 2 VIEWS: Date: 10/06/2020 HISTORY: Cellulitis of calf that has been getting worse. FINDINGS: There are moderate arthritic changes of the knee. There is spur formation at the Achilles tendon inse rtion. Vascular calcifications are seen. No underlying bony findings that would suggest osteomyelitis . No air within the soft tissues. IMPRESSION: No acute bony findings. No evidence for osteomyelitis. POS: BLESSING
[2020-10-06] MEDS ORDERED: Enoxaparin Sodium 30 MG/0.3 ML SYRINGE SC SCH (11:45)
[2020-10-06 14:35] VITALS: BMI 29.2
[2020-10-06] MEDS: Sodium Chloride 0.9% 1,000 ML IV SCH (15:04)
[2020-10-06 17:52] LABS: SARS-CoV-2 MS2 Positive; SARS-CoV-2 N Gene Negative; SARS-CoV-2 S Gene Negative; SARS-CoV-2 by NAA Not Detected (NotDetected); SARS-CoV-2 orf1ab Negative
--- NOTE | 2020-10-06 17:59 | ULT ---
EXAM: Left lower extremity venous Doppler US HISTORY: left lower extremity edema and pain FINDINGS: Grayscale, color-flow, Doppler evaluation, spectral analysis of the left lower extremity venous struc tures is performed with 2-D imaging. The left common femoral, superficial femoral, popliteal, posterior tibial, proximal greater saphenous and profunda femoral veins are imaged. There is normal luminal compressibility, flow, and augmentation the visualized deep venous structures of the left lower extremity. IMPRESSION: No evidence of a deep vein thrombosis in the left lower extremity.
[2020-10-06] MEDS: Cefepime 2 GM in Sodium Chloride 0.9% 100 ML IVPB SCH (21:43)
[2020-10-07] MEDS: Acetaminophen 325 MG TAB PO PRN ×4 (01:32→19:27)
[2020-10-07 05:07] LABS: #Eosinphils 0.3 thou/uL (0.0-0.7); #Lymphocytes 1.2 thou/uL (1.20-3.40); #Monocytes 0.4 thou/uL (0.11-0.59); #Neutrophils 2.5 thou/uL (1.40-6.50); %Basophils 0.4 % (0.0-1.0); %Eosinophils 6.2 % (0.0-10.0); %Lymphocytes 27.1 % (21.0-51.0); %Monocytes 9.4 % (0.0-10.0); Hemoglobin 12.7 g/dL (12.0-16.0); Mean Corpuscular HGB CONC 34.1 g/dL (32.0-36.0); Mean Corpuscular Hemoglobin 30.6 pg (27.0-31.0); Mean Corpuscular Volume 89.8 fL (78.0-98.0); Mean Platelet Volume 8.2 fL (7.4-10.4); Platelet Count 129 thou/uL (130-400); RBC Distribution Width 12.6 % (11.5-14.5); Red Blood Cell (RBC) Count 4.14 mill/uL (4.20-5.40); White Blood Cell (WBC) Count 4.5 thou/uL (4.8-10.8)
[2020-10-07 05:29] LABS: Anion Gap 10 mmol/L (10-20); BUN (Urea Nitrogen) 18 mg/dL (9.8-20.1); Calc. Creatinine Clearance 47 mL/min (70-130); Calcium 9.1 mg/dL (7.8-10.44); Carbon Dioxide 25 mmol/L (23-31); Chloride 108 mmol/L (98-107); Estimated GFR-MDRD 55; Glucose 88 mg/dL (83-110); Sodium 139 mmol/L (136-145)
[2020-10-07] MEDS ORDERED: FLU VACC QS2020-21(65YR UP)/PF 240 MCG/0.7 ML SYRINGE IM ONE (09:00)
[2020-10-07] MEDS: Enoxaparin Sodium 30 MG/0.3 ML SYRINGE SC SCH (09:21)
[2020-10-07] MEDS: Famotidine 20 MG TAB PO SCH (09:21)
--- NOTE | 2020-10-07 09:21 | PDOC.HOSPP ---
- Subjective Encounter Date: 10/07/20 Encounter Time: 08:30 Subjective: Patient seen today. Complains her hands ache, which she states is chronic but worse than normal. She was planning to go see her PCP on Friday to talk abou increased discomfort. She reports she may not have taken her home medication for this yesterday so once reconciled we will get her back on her meds to see if this helps. Denies overnight issues. Denies leg pain, states she thinks the cellulitis is improving. - Objective Vital Signs & Weight: Vital Signs (12 hours) Temp Pulse Resp BP Pulse Ox 10/07/20 07:00 97.4 F L 88 18 158/72 H 100 10/07/20 03:36 97.9 F 71 19 146/84 H 100 10/06/20 23:18 97.6 F 67 19 147/66 H 99 Weight Weight 72.575 kg Result Diagrams: 10/07/20 04:47 10/07/20 04:47 Additional Labs: Accuchecks 10/07/20 10/06/20 10/06/20 05:18 23:23 16:15 POC Glucose 78 102 H 130 H Hospitalist ROS - Review of Systems Constitutional: denies: fever, chills, sweats, weakness, malaise, other Eyes: denies: pain, vision change, conjunctivae inflammation, eyelid inflammation, redness, other ENT: denies: ear pain, ear discharge, nose pain, nose discharge, nose congestion, mouth pain, mouth swelling, throat pain, throat swelling, other Respiratory: denies: cough, dry, shortness of breath, hemoptysis, SOB with excertion, pleuritic pain, sputum, wheezing, other Cardiovascular: denies: chest pain, palpitations, orthopnea, paroxysmal noc. dyspnea, edema, light headedness, other Gastrointestinal: denies: nausea, vomiting, abdominal pain, diarrhea, constipation, melena, hematochezia, other Musculoskeletal: reports: hand pain Skin: denies: rash, lesions, annalee, bruising, other Neurological: denies: weakness, numbness, incoordination, change in speech, confusion, seizures, other - Medication Medications: Active Medications Generic Name Dose Route Start Last Admin Trade Name Freq PRN Reason Stop Dose Admin Acetaminophen 650 mg 10/06/20 11:09 10/07/20 06:32 Acetaminophen 325 Mg Tab PO 650 mg Q4H PRN Administration Headache/Fever/Mild Pain (1-3) Cefepime HCl 2 gm/ Sodium 100 mls @ 200 mls/hr 10/06/20 21:00 10/06/20 21:43 Chloride IVPB 100 mls Q12HR MATT Administration Sodium Chloride 1,000 mls @ 45 mls/hr 10/06/20 11:45 10/06/20 15:04 Normal Saline 0.9% IV 1,000 mls .[id number] MATT Administration - Exam General Appearance: awake alert Eye: PERRL, anicteric sclera ENT: normocephalic atraumatic, moist mucosa Neck: supple, no JVD Heart: RRR, no murmur Respiratory: CTAB, normal chest expansion Gastrointestinal: soft, non-tender Extremities - other findings: Left lower leg with erythema and edema; erythema has not exceeded marker Skin - other findings: See extremities Neurological: cranial nerve grossly intact Hosp A/P (1) PINKY (acute kidney injury) Code(s): N17.9 - ACUTE KIDNEY FAILURE, UNSPECIFIED Status: Resolved (2) Left leg cellulitis Code(s): L03.116 - CELLULITIS OF LEFT LOWER LIMB Status: Acute (3) Arthritis Code(s): M19.90 - UNSPECIFIED OSTEOARTHRITIS, UNSPECIFIED SITE Status: Chronic (4) Hypertension Code(s): I10 - ESSENTIAL (PRIMARY) HYPERTENSION Status: Chronic (5) Hypothyroidism Code(s): E03.9 - HYPOTHYROIDISM, UNSPECIFIED Status: Chronic (6) Pre-diabetes Code(s): R73.03 - PREDIABETES Status: Chronic - Plan continue antibiotics, PT/OT, GI proph Problem (1) Left leg cellulitis Code(s): L03.116 - CELLULITIS OF LEFT LOWER LIMB Status: Acute Assessment and Plan: Continue IV antibiotics Pharmacy to dose Vanc Will be on Cefepime and Vanc Monitor for further worsening of erythema/swelling. Daily BMP to assess renal funcion. Daily CBC. Blood cultures - no growth to date (2) PINKY (acute kidney injury) Code(s): N17.9 - ACUTE KIDNEY FAILURE, UNSPECIFIED Status: Acute Assessment and Plan: Hx of lower extremity Edema, on Lasix at home. Last Echo 03/2019: EF 50-55%, LVH, mod MR, mild TR. Gentle hydration. Will likely DC fluids in AM Monitor renal function Creatinine has improved; PINKY has resolved (3) Hypertension Code(s): I10 - ESSENTIAL (PRIMARY) HYPERTENSION Status: Chronic Assessment and Plan: Monitor BP Resume home medications once verified. (4) Hypothyroidism Code(s): E03.9 - HYPOTHYROIDISM, UNSPECIFIED Status: Chronic Assessment and Plan: Resume levothyroxine once dose verified. Check TSH in AM (5) Pre-diabetes Code(s): R73.03 - PREDIABETES Status: Chronic Assessment and Plan: glucose monitoring, ACHS (6) Arthritis Code(s): M19.90 - UNSPECIFIED OSTEOARTHRITIS, UNSPECIFIED SITE Status: Chronic Assessment and Plan: Resume home meds once verified. - Plan Plan: GI prophylaxis with Famotidine. DVT Prophylaxis with Enoxaparin Surrogate decision maker is her daughter Arianne Pino FULL CODE STATUS
[2020-10-07] MEDS: Metoprolol Tartrate 100 MG TAB PO SCH (09:22)
[2020-10-07] MEDS: Cefepime 2 GM in Sodium Chloride 0.9% 100 ML IVPB SCH ×2 (09:24→21:09)
[2020-10-07] MEDS ORDERED: Vancomycin 1 GM in Premix Bag 1 BAG IVPB SCH (11:00)
[2020-10-07] MEDS: Sodium Chloride 0.9% 1,000 ML IV SCH (15:46)
[2020-10-07] MEDS: Atorvastatin Calcium 40 MG TAB PO SCH (21:09)
[2020-10-07] MEDS: Ketotifen Fumarate 0.025% Ophth Soln 5 ml Bottle EA EYE SCH (21:10)
[2020-10-08 05:28] LABS: #Eosinphils 0.3 thou/uL (0.0-0.7); #Lymphocytes 1.2 thou/uL (1.20-3.40); #Monocytes 0.3 thou/uL (0.11-0.59); #Neutrophils 2.7 thou/uL (1.40-6.50); %Basophils 0.3 % (0.0-1.0); %Eosinophils 7.3 % (0.0-10.0); %Lymphocytes 25.9 % (21.0-51.0); %Monocytes 6.8 % (0.0-10.0); %Neutrophils 59.6 % (42.0-75.0); Mean Corpuscular HGB CONC 34.7 g/dL (32.0-36.0); Mean Corpuscular Hemoglobin 30.9 pg (27.0-31.0); Mean Corpuscular Volume 89.1 fL (78.0-98.0); Mean Platelet Volume 8.2 fL (7.4-10.4); Platelet Count 131 thou/uL (130-400); RBC Distribution Width 12.4 % (11.5-14.5); Red Blood Cell (RBC) Count 4.22 mill/uL (4.20-5.40); White Blood Cell (WBC) Count 4.6 thou/uL (4.8-10.8)
[2020-10-08 05:44] LABS: Anion Gap 9 mmol/L (10-20); BUN (Urea Nitrogen) 14 mg/dL (9.8-20.1); Calc. Creatinine Clearance 53 mL/min (70-130); Calcium 9.3 mg/dL (7.8-10.44); Carbon Dioxide 27 mmol/L (23-31); Chloride 107 mmol/L (98-107); Estimated GFR-MDRD 62; Glucose 90 mg/dL (83-110); Potassium 4.1 mmol/L (3.5-5.1); Sodium 139 mmol/L (136-145)
[2020-10-08] MEDS: Levothyroxine Sodium 50 MCG TAB PO SCH (05:56)
[2020-10-08] MEDS: Acetaminophen 325 MG TAB PO PRN ×3 (05:56→21:08)
[2020-10-08] MEDS: Enoxaparin Sodium 30 MG/0.3 ML SYRINGE SC SCH (08:37)
[2020-10-08] MEDS: Aspirin 81 mg Enteric Coated Tablet PO SCH (08:38)
[2020-10-08] MEDS: Furosemide 20 MG TAB PO SCH (08:38)
[2020-10-08] MEDS: Meloxicam 15 MG TAB PO SCH (08:38)
[2020-10-08] MEDS: Famotidine 20 MG TAB PO SCH (08:38)
[2020-10-08] MEDS: Cefepime 2 GM in Sodium Chloride 0.9% 100 ML IVPB SCH ×2 (08:40→21:12)
[2020-10-08] MEDS: Ketotifen Fumarate 0.025% Ophth Soln 5 ml Bottle EA EYE SCH ×2 (08:40→21:12)
[2020-10-08] MEDS: Metoprolol Tartrate 100 MG TAB PO SCH (08:41)
[2020-10-08 10:21] LABS: Vancomycin, Trough 9.5 ug/mL
--- NOTE | 2020-10-08 10:46 | PDOC.HOSPP ---
- Subjective Encounter Date: 10/08/20 Encounter Time: 09:15 Subjective: Patient reports pain in her left leg is improving. Was able to get some sleep overnight. Denies any new complaints. - Objective Vital Signs & Weight: Vital Signs (12 hours) Temp Pulse Resp BP Pulse Ox 10/08/20 08:38 96 10/08/20 07:50 98 F 78 18 170/89 H 96 10/08/20 04:23 97.8 F 70 16 146/63 H 95 10/08/20 00:00 97.4 F L 68 16 161/74 H 95 Weight Admit Weight 72.575 kg Weight 72.575 kg I&O: 10/07/20 10/08/20 10/09/20 06:59 06:59 06:59 Intake Total 480 Output Total 2452 Balance -1972 Result Diagrams: 10/08/20 04:59 10/08/20 04:59 Additional Labs: Accuchecks 10/07/20 10/07/20 21:35 10:45 POC Glucose 113 H 91 Hospitalist ROS - Review of Systems Constitutional: denies: fever, chills, sweats, weakness, malaise, other Eyes: denies: pain, vision change, conjunctivae inflammation, eyelid inflammation, redness, other ENT: denies: ear pain, ear discharge, nose pain, nose discharge, nose con gestion, mouth pain, mouth swelling, throat pain, throat swelling, other Respiratory: denies: cough, dry, shortness of breath, hemoptysis, SOB with excertion, pleuritic pain, sputum, wheezing, other Cardiovascular: denies: chest pain, palpitations, orthopnea, paroxysmal noc. dyspnea, edema, light headedness, other Gastrointestinal: denies: nausea, vomiting, abdominal pain, diarrhea, constipation, melena, hematochezia, other Genitourinary: denies: dysuria, frequency, incontinence, hematuria, retention, other Musculoskeletal: reports: hand pain (We restarted home meds yesterday and pain in bilateral hands has improved) Skin: reports: other (Erythema, warmth and edema is improving to left leg) - Medication Medications: Active Medications Generic Name Dose Route Start Last Admin Trade Name Freq PRN Reason Stop Dose Admin Acetaminophen 650 mg 10/06/20 11:09 10/08/20 05:56 Acetaminophen 325 Mg Tab PO 650 mg Q4H PRN Administration Headache/Fever/Mild Pain (1-3) Aspirin 81 mg 10/08/20 09:00 10/08/20 08:38 Aspirin 81 Mg Enteric Coated Tablet PO 81 mg DAILY MATT Administration Atorvastatin Calcium 40 mg 10/07/20 21:00 10/07/20 21:09 Atorvastatin Calcium 40 Mg Tab PO 40 mg HS MATT Administration Enoxaparin Sodium 30 mg 10/07/20 09:00 10/08/20 08:37 Enoxaparin Sodium 30 Mg/0.3 Ml Syringe SC 30 mg 0900 MATT Administration Famotidine 20 mg 10/07/20 09:00 10/08/20 08:38 Famotidine 20 Mg Tab PO 20 mg DAILY MATT Administration Furosemide 20 mg 10/08/20 09:00 10/08/20 08:38 Furosemide 20 Mg Tab PO 20 mg DAILY MATT Administration Cefepime HCl 2 gm/ Sodium 100 mls @ 200 mls/hr 10/06/20 21:00 10/08/20 08:40 Chloride IVPB 100 mls Q12HR MATT Administration Sodium Chloride 1,000 mls @ 45 mls/hr 10/06/20 11:45 10/07/20 15:46 Normal Saline 0.9% IV Not Given .[id number] MATT Indapamide 2.5 mg 10/08/20 09:00 10/08/20 08:41 Indapamide 2.5 Mg Tab PO 2.5 mg DAILY MATT Administration Ketotifen Fumarate 1 drop 10/07/20 21:00 10/08/20 08:40 Ketotifen Fumarate 0.025% Ophth Soln 5 Ml Bottle EA EYE 1 drp BID MATT Administration Levothyroxine Sodium 50 mcg 10/08/20 06:00 10/08/20 05:56 Levothyroxine Sodium 50 Mcg Tab PO 50 mcg 0600 MATT Administration Meloxicam 15 mg 10/08/20 09:00 10/08/20 08:38 Meloxicam 15 Mg Tab PO 15 mg DAILY MATT Administration Metoprolol Tartrate 100 mg 10/07/20 09:00 10/08/20 08:41 Metoprolol Tartrate 100 Mg Tab PO 100 mg DAILY MATT Administration - Exam Eye: PERRL, anicteric sclera ENT: normocephalic atraumatic, moist mucosa Neck: supple, no JVD Heart: RRR Gastrointestinal: soft, non-tender Extremities - other findings: Left lower leg with mild erythema, warmth and edema. Much improved today Skin: normal turgor Skin - other findings: Has small ulceration to dorsal lower left leg, improving Hosp A/P (1) PINKY (acute kidney injury) Code(s): N17.9 - ACUTE KIDNEY FAILURE, UNSPECIFIED Status: Resolved (2) Left leg cellulitis Code(s): L03.116 - CELLULITIS OF LEFT LOWER LIMB Status: Acute (3) Arthritis Code(s): M19.90 - UNSPECIFIED OSTEOARTHRITIS, UNSPECIFIED SITE Status: Chronic (4) Hypertension Code(s): I10 - ESSENTIAL (PRIMARY) HYPERTENSION Status: Chronic (5) Hypothyroidism Code(s): E03.9 - HYPOTHYROIDISM, UNSPECIFIED Status: Chronic (6) Pre-diabetes Code(s): R73.03 - PREDIABETES Status: Chronic - Plan Problem (1) Left leg cellulitis Code(s): L03.116 - CELLULITIS OF LEFT LOWER LIMB Status: Acute Assessment and Plan: Continue IV antibiotics Pharmacy to dose Vanc Will be on Cefepime and Vanc Monitor for further worsening of erythema/swelling. Are of erythema and warmth has receeded from previous outline Daily BMP to assess renal function. Blood cultures - no growth to date Discussed DC in AM if cellulitis continues to improve. Patient's daughter reports she and caregiver at night can assist with dressing changes once home. (2) PINKY (acute kidney injury) Code(s): N17.9 - ACUTE KIDNEY FAILURE, UNSPECIFIED Status: Acute Assessment and Plan: Hx of lower extremity Edema, on Lasix at home. Last Echo 03/2019: EF 50-55%, LVH, mod MR, mild TR. Monitor renal function Creatinine has improved; PINKY has resolved (3) Hypertension Code(s): I10 - ESSENTIAL (PRIMARY) HYPERTENSION Status: Chronic Assessment and Plan: Monitor BP Resume home medications once verified. (4) Hypothyroidism Code(s): E03.9 - HYPOTHYROIDISM, UNSPECIFIED Status: Chronic Assessment and Plan: Resume levothyroxine once dose verified. (5) Pre-diabetes Code(s): R73.03 - PREDIABETES Status: Chronic Assessment and Plan: glucose monitoring, ACHS (6) Arthritis Code(s): M19.90 - UNSPECIFIED OSTEOARTHRITIS, UNSPECIFIED SITE Status: Chronic Assessment and Plan: Resume home meds once verified. - Plan Plan: GI prophylaxis with Famotidine. DVT Prophylaxis with Enoxaparin Surrogate decision maker is her daughter Arianne Pino FULL CODE STATUS
[2020-10-08] MEDS: Sodium Chloride 0.9% 1,000 ML IV SCH (10:48)
[2020-10-08] MEDS ORDERED: Vancomycin HCl 1.25 GM in Sodium Chloride 0.9% 250 ML 250 ML IVPB SCH (11:00)
[2020-10-08] MEDS: Vancomycin HCl 750 MG in Sodium Chloride 0.9% 250 ML 250 ML IVPB SCH ×2 (11:20→22:40)
[2020-10-08] MEDS: Atorvastatin Calcium 40 MG TAB PO SCH (21:08)
[2020-10-09] MEDS: Levothyroxine Sodium 50 MCG TAB PO SCH (05:11)
[2020-10-09] MEDS: Cefepime 2 GM in Sodium Chloride 0.9% 100 ML IVPB SCH (08:47)
[2020-10-09] MEDS: Ketotifen Fumarate 0.025% Ophth Soln 5 ml Bottle EA EYE SCH (08:53)
[2020-10-09] MEDS: Famotidine 20 MG TAB PO SCH (08:56)
[2020-10-09] MEDS: Meloxicam 15 MG TAB PO SCH (08:56)
[2020-10-09] MEDS: Metoprolol Tartrate 100 MG TAB PO SCH (08:56)
[2020-10-09] MEDS: Aspirin 81 mg Enteric Coated Tablet PO SCH (08:57)
[2020-10-09] MEDS: Furosemide 20 MG TAB PO SCH (08:57)
[2020-10-09] MEDS: Enoxaparin Sodium 30 MG/0.3 ML SYRINGE SC SCH (09:02)
[2020-10-09] MEDS: Vancomycin HCl 750 MG in Sodium Chloride 0.9% 250 ML 250 ML IVPB SCH (11:12)
[2020-10-09 11:45] VITALS: BP 149/78; TEMP 97.5
--- NOTE | 2020-10-09 22:14 | PDOC.DS.DS ---
Provider - Provider Date of Admission: 10/06/20 10:47 Date of Discharge: 10/09/20 Admitting Provider: Erin Ornelas MD Primary Care Physician: Kenton Mcneal MD Course - Hospital Course Hospital Course: Patient is a 85-year-old female with recent left leg cellulitis presented to the emergency room with worsening left leg swelling along with increasing erythema despite oral antibiotics. Please refer to the history and physical dated 10/06 for further details. The patient was admitted to the hospital with a diagnosis of left leg cellulitis. She was started on IV vancomycin with cefepime by the admitting physician. I assumed the care of this patient on the day of discharge. Left leg swelling and erythema has significantly improved. She is probably stable for discharge on oral antibiotics. Left lower extremity Doppler was negative for DVT. Plan of care was discussed with the daughter at the bedside. Final diagnosis: Left leg cellulitispatient failed outpatient therapy Hypertension Hypothyroidism Impaired glucose tolerance with A1c of 5.9 CKD stage II Hyperlipidemia Codeine ALLERGY - Labs Lab Results: 10/08/20 04:59 10/08/20 04:59 Abnormal Lab Results - Last 48 hrs 10/08/20 04:59: Anion Gap 9 L 10/08/20 04:59: WBC 4.6 L Microbiology - Entire Visit 10/06/20 10:16 Venous blood - Right Arm Blood Culture - Preliminary NO GROWTH AT 48 HOURS 10/06/20 09:59 Venous blood - Left Arm Blood Culture - Preliminary NO GROWTH AT 48 HOURS - Physical Exam Vitals: Vital Signs (12 hours) Temp Pulse Resp BP Pulse Ox 10/09/20 11:25 97.5 F L 62 14 149/78 H 96 Weight Admit Weight 160 lb Weight 160 lb Physical Exam: The patient was seen and examined on the day of discharge. Plan - Discharge Medications Prescriptions: Doxycycline Hyclate 100 mg PO BID #10 capsule Saccharomyces boulardii [Florastor] 250 mg PO DAILY #30 cap Cephalexin [Keflex] 500 mg PO Q6H #24 cap Home Medications: Medication Instructions Recorded Confirmed Type Atorvastatin Calcium 40 mg PO HS 10/21/14 10/07/20 History Indapamide [Lozol] 2.5 mg PO DAILY 10/21/14 10/07/20 History Levothyroxine Sodium [Synthroid] 50 mcg PO DAILY 10/21/14 10/07/20 History Meloxicam [Mobic] 15 mg PO DAILY 10/21/14 10/07/20 History Metoprolol Tartrate [Lopressor] 100 mg PO DAILY 10/21/14 10/07/20 History metFORMIN HCl [metFORMIN HCl ER] 500 mg PO DAILY 10/21/14 10/15/19 History Aspirin [Ecotrin Low Strength] 81 mg PO DAILY tab 04/22/19 10/07/20 Rx Acetaminophen [Tylenol Extra 1,000 mg PO Q6H PRN tab 10/17/19 10/07/20 Rx Strength] traMADol HCl [Ultram] 50 mg PO Q4H PRN #20 tab 10/17/19 Rx Calcium Carbonate/Vitamin D3 1 each PO HS 10/07/20 10/07/20 History [Calcium 600-Vit D3 200 Tablet] Furosemide 20 mg PO DAILY 10/07/20 10/07/20 History Olopatadine HCl [Pazeo] 1 drop EA EYE DAILY 10/07/20 10/07/20 History Cephalexin [Keflex] 500 mg PO Q6H #24 cap 10/09/20 Rx Doxycycline Hyclate 100 mg PO BID #10 capsule 10/09/20 Rx Saccharomyces boulardii [Florastor] 250 mg PO DAILY #30 cap 10/09/20 Rx Allergies: codeine Allergy (Verified 04/21/19 12:08) - Follow up Plan Referrals: [facility] [Outside] Kenton Mcneal MD [Primary Care Provider] - 7 Days Disposition: HOME Quality - Care Measures CORE MEASURES:: N/A
--- NOTE | 2020-10-12 09:59 | PQF ---
CLINICAL DOCUMENTATION CLARIFICATION FORM: Dear : GRAHAM HUYNH MD Date / Time: 10/12/2020 Please exercise your independent, professional judgment in responding to the clarification form. Clinical indicators are provided on the bottom of this form for your review Please check appropriate box(s): to clarify the causal relationship between DM and cellulitis Cellulitis of left lower limb [ x ] Due to Diabetes [ ] Not due to Diabetes [ ] Other diagnosis (Please specify if any) [ ] Unable to determine In addition, please specify: Present on Admission (POA): [ x ] Yes [ ] No [ ] Unable to determine Physician Signature: Date/Time: For continuity of documentation, please document condition throughout progress notes and discharge summary. Thank You. To be completed by CDI/Coding staff for physician review: Present Clinical Indicators - Signs / Symptoms / Labs Results and Location in Medical Record [ ] Skin condition [ ] Purulent Drainage [x] LLE: erythema/swelling, lower half of lower leg H&P on 10/06 [x] Cellulitis of left lower limb H&P on 10/06 Present Risk Factors Results and Location in Medical Record [ ] Peripheral Vascular Disease [x] Prediabetes H&P on 10/06 [ ] Neuropathy [ ] Recent surgery or infection of surgical site [ ] Recent injury to site [ ] Immunosuppression [ ] IV Drug Use Present Treatments Results and Location in Medical Record [x] Rocephin 2gm Medication on 10/06 [x] Impaired glucose tolerance with A1c of 5.9 Discharge summary on 10/09 [x] Resumed at home: Metformin 500mg PO Discharge medication [x] Vancomycin 1.25gm IV Medication on 10/06 CDS/Flight Deck Officer Signature: AAS Phone #: Date/Time: 10/12/2020 This is a permanent part of the Medical Record [facility]
== END 2020-10-09 14:00 | disposition home or self-care (01) | DRG 638 ==
LOC: ERS 08:38 → SURG A 10:47
PROVIDERS: ADMIT Internal Medicine; ATTEND Internal Medicine
DX: E11.628 Type 2 diabetes mellitus with other skin complications (principal); L03.116 Cellulitis of left lower limb; N17.9 Acute kidney failure, unspecified; E03.9 Hypothyroidism, unspecified; M19.90 Unspecified osteoarthritis, unspecified site; E78.5 Hyperlipidemia, unspecified; N18.2 Chronic kidney disease, stage 2 (mild); E11.22 Type 2 diabetes mellitus with diabetic chronic kidney disease; I12.9 Hypertensive chronic kidney disease with stage 1 through stage 4 chronic kidney disease, or unspecified chronic kidney disease; Z90.49 Acquired absence of other specified parts of digestive tract; Z90.710 Acquired absence of both cervix and uterus; Z88.6 Allergy status to analgesic agent; Z79.899 Other long term (current) drug therapy; Z79.84 Long term (current) use of oral hypoglycemic drugs; Z20.828 Contact with and (suspected) exposure to other viral communicable diseases
CPT/HCPCS: 36415; 36416; 80048; 80053; 80202; 83605; 83880; 84443; 85025; 85652; 86140; 87040; 87635; 96365; 96366; 96368; J0692; J0696; J1650; J3370; J3490; J7050; U0003

== ENCOUNTER 2020-12-05 22:01 | Emergency (ER) | payer MEDICARE, OTHER ==
[2020-12-05] MEDS ORDERED: Mag-Al 1200 mg/1200 mg/30 ML UDCUP ONE (22:33)
[2020-12-05] MEDS ORDERED: Lidocaine Viscous Sol 2% 15 ml UD Cup ONE (22:33)
[2020-12-05] MEDS ORDERED: Ondansetron ODT 4 MG TAB ONE (22:33)
[2020-12-05 22:56] LABS: #Eosinphils 0.2 thou/uL (0.0-0.7); #Lymphocytes 0.4 thou/uL (1.20-3.40); #Monocytes 0.3 thou/uL (0.11-0.59); #Neutrophils 5.9 thou/uL (1.40-6.50); %Basophils 0.2 % (0.0-1.0); %Eosinophils 2.6 % (0.0-10.0); %Lymphocytes 6.4 % (21.0-51.0); %Monocytes 4.8 % (0.0-10.0); Hemoglobin 13.9 g/dL (12.0-16.0); Mean Corpuscular HGB CONC 33.3 g/dL (32.0-36.0); Mean Corpuscular Hemoglobin 29.1 pg (27.0-31.0); Mean Corpuscular Volume 87.5 fL (78.0-98.0); Mean Platelet Volume 8.1 fL (7.4-10.4); Platelet Count 141 thou/uL (130-400); RBC Distribution Width 12.6 % (11.5-14.5); Red Blood Cell (RBC) Count 4.77 mill/uL (4.20-5.40); White Blood Cell (WBC) Count 6.8 thou/uL (4.8-10.8)
[2020-12-05 23:19] LABS: ALT (SGPT) 14 U/L (8-55); AST (SGOT) 16 U/L (5-34); Albumin 3.9 g/dL (3.4-4.8); Alkaline Phosphatase 85 U/L (40-110); Anion Gap 11 mmol/L (10-20); BUN (Urea Nitrogen) 23 mg/dL (9.8-20.1); Bilirubin, Total 0.8 mg/dL (0.2-1.2); Calc. Creatinine Clearance 0 mL/min (70-130); Calcium 9.5 mg/dL (7.8-10.44); Carbon Dioxide 28 mmol/L (23-31); Chloride 102 mmol/L (98-107); Globulin 3.5 g/dL (2.4-3.5); Glucose 139 mg/dL (83-110); Potassium 3.6 mmol/L (3.5-5.1); Protein, Total 7.4 g/dL (6.0-8.3); Sodium 137 mmol/L (136-145)
== END 2020-12-06 00:13 | disposition home or self-care (01) ==
LOC: ERS 22:01
DX: R11.2 Nausea with vomiting, unspecified (principal); E03.9 Hypothyroidism, unspecified; I10 Essential (primary) hypertension; Z79.82 Long term (current) use of aspirin; Z79.899 Other long term (current) drug therapy
CPT/HCPCS: 36415; 80053; 85025; 99284; Q0162